=== PATIENT | male | born 1995 | race Hispanic/Latino ===

== ENCOUNTER 2023-10-27 04:10 | Emergency (ER) | payer SELFPAY ==
[2023-10-27] MEDS ORDERED: Metoclopramide HCl 10 MG/2 ML VIAL ONE (04:39)
[2023-10-27] MEDS ORDERED: Acetaminophen 325 MG TAB ONE (04:39)
[2023-10-27] MEDS ORDERED: Fioricet 325/50/40 mg Tablet ONE (04:39)
[2023-10-27 05:05] LABS: #Monocytes 0.8 thou/uL (0.11-0.59); #Neutrophils 3.6 thou/uL (1.40-6.50); %Basophils 0.4 % (0.0-1.0); %Eosinophils 0.2 % (0.0-10.0); %Lymphocytes 18.4 % (21.0-51.0); %Monocytes 14.5 % (0.0-10.0); %Neutrophils 66.3 % (42.0-75.0); Hematocrit 44.8 % (42.0-52.0); Hemoglobin 15.4 g/dL (14.0-18.0); Mean Corpuscular HGB CONC 34.4 g/dL (32.0-36.0); Mean Corpuscular Hemoglobin 30.4 pg (27.0-31.0); Mean Corpuscular Volume 88.5 fl (78.0-98.0); Mean Platelet Volume 9.6 fL (7.4-10.4); Platelet Count 241 10x3/uL (130-400); RBC Distribution Width 12.8 % (11.5-14.5); Red Blood Cell (RBC) Count 5.06 mill/uL (4.70-6.10); White Blood Cell (WBC) Count 5.4 10x3/uL (4.8-10.8)
[2023-10-27 05:18] LABS: Prothrombin Time 13.5 sec (12.0-14.7)
[2023-10-27 05:26] LABS: ALT (SGPT) 21 U/L (8-55); AST (SGOT) 29 U/L (5-34); Albumin 4.5 g/dL (3.5-5.0); Alkaline Phosphatase 82 U/L (40-110); Anion Gap 14 mmol/L (10-20); BUN (Urea Nitrogen) 9 mg/dL (8.9-20.6); Bilirubin, Total 0.4 mg/dL (0.2-1.2); Calc. Creatinine Clearance 0 mL/min (70-130); Calcium 9.1 mg/dL (7.8-10.44); Carbon Dioxide 26 mmol/L (22-29); Chloride 103 mmol/L (98-107); Estimated GFR 118; Globulin 3.9 g/dL (2.4-3.5); Glucose 97 mg/dL (70-105); Potassium 4.7 mmol/L (3.5-5.1); Protein, Total 8.4 g/dL (6.0-8.3); Sodium 138 mmol/L (136-145)
== END 2023-10-27 06:55 | disposition home or self-care (01) ==
LOC: ERS 04:10
DX: J06.9 Acute upper respiratory infection, unspecified (principal); J32.9 Chronic sinusitis, unspecified; R51.9 Headache, unspecified
CPT/HCPCS: 70450; 80053; 85025; 85610; 85730; 96365; J2765